=== PATIENT | female | born 1980 | race Two or more races ===

== ENCOUNTER 2016-11-09 15:32 | Inpatient (IN) | payer OTHER ==
[2016-11-09 18:48] VITALS: BMI 22.6
--- NOTE | 2016-11-09 19:40 | HP ---
CIWA Score - CIWA Score Nausea/Vomitin Muscle Tremors: 4-Moderate,w/Arms Extend Anxiety: 4-Mod. Anxious/Guarded Agitation: 4-Moderately Restless Paroxysmal Sweats: 1-Minimal Palms Moist Orientation: 1-Uncertain about Date Tacttile Disturbances: 0-None Auditory Disturbances: 0-None Visual Disturbances: 0-None Headache: 1-Very Mild CIWA-Ar Total Score: 17 Admission ROS BHS - HPI Chief Complaint: WITHDRAWAL SX Allergies/Adverse Reactions: Allergies Allergy/AdvReac Type Severity Reaction Status Date / Time No Known Allergies Allergy Verified 12/16/15 14:42 History of Present Illness: 36 YEARS OLD FEMALE WITH LONG HISTORY OF ALCOHOL NICOTINE DEPENDENCE HAS ASTHMA AND DEPRESSION IS ADMITTED TO DETOX Exam Limitations: No Limitations - Ebola screening Have you traveled outside of the country in the last 21 days: No Have you had contact with anyone from an Ebola affected area: No Have you been sick,other than usual withdrawal symptoms: No Do you have a fever: No - Review of Systems Constitutional: Chills, Changes in sleep, Weight Stable EENT: reports: No Symptoms Reported Respiratory: reports: SOB with Exertion, Productive cough Cardiac: reports: No Symptoms Reported GI: reports: Nausea, Poor Fluid Intake, Abdominal cramping : reports: No Symptoms Reported Musculoskeletal: reports: No Symptoms Reported Integumentary: reports: No Symptoms Reported Neuro: reports: Tremors Endocrine: reports: No Symptoms Reported Hematology: reports: No Symptoms Reported Psychiatric: reports: Judgement Intact, Depressed Other Systems: Reviewed and Negative Patient History - Patient Medical History Hx Anemia: No Hx Asthma: Yes (ON ALBUTEROL INHALER) Hx Chronic Obstructive Pulmonary Disease (COPD): No Hx Cancer: No Hx Cardiac Disorders: No Hx Congestive Heart Failure: No Hx Hypertension: No Hx Hypercholesterolemia: No Hx Pacemaker: No HX Cerebrovascular Accident: No Hx Seizures: No Hx Dementia: No Hx Diabetes: No Hx Gastrointestinal Disorders: No Hx Liver Disease: No Hx Genitourinary Disorders: No Hx Sexually Transmitted Disorders: No Hx Renal Disease (ESRD): No Hx Thyroid Disease: No Hx Human Immunodeficiency Virus (HIV): No (LAST 09/24) Hx Hepatitis C: No Hx Depression: Yes (NO MED) Hx Suicide Attempt: No Hx Bipolar Disorder: No Hx Schizophrenia: No - Patient Surgical History Past Surgical History: Yes Hx Neurologic Surgery: No Hx Cataract Extraction: No Hx Cardiac Surgery: No Hx Lung Surgery: No Hx Breast Surgery: No Hx Breast Biopsy: No Hx Abdominal Surgery: No Hx Appendectomy: No Hx Cholecystectomy: No Hx Genitourinary Surgery: No Hx Section: Yes (x1) Hx Orthopedic Surgery: No Hx Hysterectomy: No Other Surgical History: S/P SECTION Anesthesia Reaction: No - PPD History Previous Implant?: Yes Documented Results: Negative w/o proof Implanted On Prior [facility] Admission?: Yes Date: 12/19/15 PPD to be Administered?: No - Smoking Cessation Smoking history: Current every day smoker Have you smoked in the past 12 months: Yes Aproximately how many cigarettes per day: 6 Cigars Per Day: 0 Hx Chewing Tobacco Use: No Initiated information on smoking cessation: Yes 'Breaking Loose' booklet given: 11/09/16 - Substance & Tx. History Hx Alcohol Use: Yes Hx Substance Use: No Substance Use Type: Alcohol Hx Substance Use Treatment: Yes - Substances Abused Alcohol Route: Oral Frequency: Daily Amount used: 2 PINTS VOLKA Age of first use: 17 Date of Last Use: 11/09/16 Family Disease History - Family Disease History Family Disease History: Diabetes: Grandparent, Heart Disease: Mother Other Family History: ONLY CHILD Admission Physical Exam BHS - Vital Signs Vital Signs: Vital Signs - 24 hr 11/09/16 18:45 Temperature 99.2 F Pulse Rate 128 H Respiratory 20 Rate Blood Pressure 132/86 - Physical General Appearance: Yes: Appropriately Dressed, Mild Distress, Alcohol on Breath , Thin, Tremorous, Irritable, Sweating, Anxious HEENTM: Yes: Hearing grossly Normal, Normal ENT Inspection, Normocephalic, Normal Voice Respiratory: Yes: Chest Non-Tender, No Respiratory Distress, No Accessory Muscle Use, Rhonchi, Wheezing, Expiration Neck: Yes: Supple, Trachea in good position Breast: Yes: Breasts Symetrical Cardiology: Yes: Regular Rhythm, S1, S2, Tachycardia Abdominal: Yes: Non Tender, Soft Genitourinary: Yes: Within Normal Limits Back: Yes: Normal Inspection Musculoskeletal: Yes: full range of Motion, Gait Steady Extremities: Yes: Normal Inspection, Normal Range of Motion, Non-Tender, Tremors Neurological: Yes: Alert, Motor Strength 5/5, Normal Response, Depressed Affect Integumentary: Yes: Warm Lymphatic: Yes: Within Normal Limits - Diagnostic (1) Alcohol dependence with uncomplicated withdrawal Current Visit: Yes Status: Acute (2) Asthma Current Visit: Yes Status: Chronic Qualifiers: Asthma severity: moderate persistent Asthma complication type: with acute exacerbation Qualified Code(s): J45.41 - Moderate persistent asthma with (acute) exacerbation (3) Nicotine dependence Current Visit: Yes Status: Acute Qualifiers: Nicotine product type: cigarettes Substance use status: in withdrawal Qualified Code(s): F17.213 - Nicotine dependence, cigarettes, with withdrawal (4) Weight loss Current Visit: Yes Status: Acute (5) Depression Current Visit: No Status: Chronic Qualifiers: Depression Type: unspecified Qualified Code(s): F32.9 - Major depressive disorder, single episode, unspecified (6) GERD (gastroesophageal reflux disease) Current Visit: Yes Status: Chronic Qualifiers: Esophagitis presence: without esophagitis Qualified Code(s): K21.9 - Gastro-esophageal reflux disease without esophagitis Cleared for Admission BHS - Detox or Rehab BHS Level of Care: Medically Managed Detox Regimen/Protocol: Librium BHS Breath Alcohol Content Breath Alcohol Content: 0.245 Urine Drug Screen - Results Drug Screen Negative: Yes
[2016-11-09] MEDS ORDERED: chlordiazePOXIDE HCL 25 MG CAPSULE PO PRN (19:56)
[2016-11-09] MEDS ORDERED: guaiFENesin/D-METHORPHAN HB 10 ML UNIT-DOSE CUPS PO PRN (19:56)
[2016-11-09] MEDS ORDERED: ACETAMINOPHEN 325 MG TABLET (FP) PO PRN (19:56)
[2016-11-09] MEDS ORDERED: P-EPHED 60MG/TRIPROLIDI 2.5MG TABLET PO PRN (19:56)
[2016-11-09] MEDS ORDERED: MAGNESIUM CITRATE 300 ML BOTTLE PO PRN (19:56)
[2016-11-09] MEDS ORDERED: MAG HYDROX/AL HYDROX/SIMETH 30 ML UNIT-DOSE CUP PO PRN (19:56)
[2016-11-09] MEDS ORDERED: LOPERAMIDE HCL 2 MG CAPSULE PO PRN (19:56)
[2016-11-09] MEDS ORDERED: MENTHOL/PHENOL 1 EACH UD MM PRN (19:56)
[2016-11-09] MEDS ORDERED: MAGNESIUM HYDROX 2400MG/30ML ORAL SUSPENSION 30 ML CUP PO PRN (19:56)
[2016-11-09] MEDS ORDERED: hydrOXYzine PAMOATE 50 MG CAPSULE (FP) PO PRN (19:56)
[2016-11-09] MEDS ORDERED: chlordiazePOXIDE HCL 25 MG CAPSULE PO ONE (19:56)
[2016-11-09] MEDS ORDERED: ALBUTEROL SO4 6.7 GM HFA INHALER IH PRN (20:02)
[2016-11-09] MEDS: RANITIDINE HCL 150 MG TABLET (FP) PO SCH (21:30)
[2016-11-09 22:42] LABS: URINE APPEARANCE CLEAR; URINE BILIRUBIN NEGATIVE (NEGATIVE); URINE BLOOD NEGATIVE (NEGATIVE); URINE COLOR DKYELLOW; URINE GLUCOSE (UA) NEGATIVE (NEGATIVE); URINE KETONE TRACE (NEGATIVE); URINE NITRITE NEGATIVE (NEGATIVE); URINE UROBILINOGEN 2.0 E.U/dl E.U./dl (0.2-1.0)
[2016-11-09 22:44] LABS: URINE PROTEIN 2+ (NEGATIVE)
[2016-11-09 22:45] LABS: URINE LEUK ESTERASE TRACE (NEGATIVE)
[2016-11-09] MEDS: chlordiazePOXIDE HCL 25 MG CAPSULE PO SCH (22:48)
[2016-11-09] MEDS: BUDESONIDE/FORMETEROL FUMARATE 80/4.5 mcg INHALER IH SCH (22:48)
[2016-11-09] MEDS: THIAMINE HCL 100 MG TABLET (FP) PO SCH (22:49)
[2016-11-09 22:58] LABS: URINE HYALINE CAST 6 /lpf; URINE MUCUS MANY; URINE RBC 3 /hpf (0-3); URINE WBC 11 /hpf (3-5)
[2016-11-10] MEDS: diphenhydrAMINE HCL 50 MG CAPSULE PO PRN (01:50)
[2016-11-10] MEDS: chlordiazePOXIDE HCL 25 MG CAPSULE PO SCH ×4 (05:32→22:13)
--- NOTE | 2016-11-10 09:52 | EKG ---
Test Reason : Blood Pressure : / mmHG Vent. Rate : 094 BPM Atrial Rate : 094 BPM P-R Int : 154 ms QRS Dur : 086 ms QT Int : 378 ms P-R-T Axes : 055 005 049 degrees QTc Int : 472 ms NORMAL SINUS RHYTHM NONSPECIFIC ST ABNORMALITY NO PREVIOUS ECGS AVAILABLE POOR DATA QUALITY, INTERPRETATION MAY BE ADVERSELY AFFECTED Confirmed by JASPAL SEGURA MD ([id number]) on 11/10/2016 9:52:24 AM Referred By: Confirmed By:JASPAL SEGURA MD
[2016-11-10 10:18] LABS: MCHC 33.8 g/dl (32.0-36.0); MEAN CELL VOLUME 100.5 fl (80-96); PLATELET COUNT 99 K/MM3 (134-434); RDW 13.6 % (11.6-15.6); WHITE BLOOD COUNT 4.6 K/mm3 (4.0-10.0)
[2016-11-10] MEDS: RANITIDINE HCL 150 MG TABLET (FP) PO SCH ×2 (10:34→22:13)
[2016-11-10] MEDS: PRENATAL VITAMINS W/ FOLIC ACID TABLET (FP) PO SCH (10:34)
[2016-11-10] MEDS: predniSONE 20 MG TABLET (UD) PO SCH (10:35)
[2016-11-10] MEDS: NICOTINE 14 MG/24 HOURS TOPICAL PATCH TD SCH (10:35)
[2016-11-10] MEDS: BUDESONIDE/FORMETEROL FUMARATE 80/4.5 mcg INHALER IH SCH ×2 (10:35→23:27)
[2016-11-10 10:59] LABS: ALBUMIN 3.5 g/dl (3.4-5.0); ALK PHOS 175 U/L (45-117); ANION GAP 13 (8-16); BILIRUBIN,TOTAL 0.9 mg/dL (0.2-1.0); CALCIUM 8.5 mg/dL (8.5-10.1); CO2 28 mmol/L (21-32); CREATININE 0.6 mg/dL (0.55-1.02); GLUCOSE,RANDOM 85 mg/dL (74-106); SGOT/AST 171 U/L (15-37); SGPT/ALT 32 U/L (12-78); TOT PROT 7.8 g/dl (6.4-8.2)
--- NOTE | 2016-11-10 11:08 | PN ---
S CIWA - CIWA Score Nausea/Vomitin-No Nausea/No Vomiting Muscle Tremors: 4-Moderate,w/Arms Extend Anxiety: 3 Agitation: 4-Moderately Restless Paroxysmal Sweats: 3 Orientation: 0-Oriented Tacttile Disturbances: 0-None Auditory Disturbances: 0-None Visual Disturbances: 0-None Headache: 0-None Present CIWA-Ar Total Score: 14 BHS Progress Note (SOAP) Subjective: shakes sweats nausea headache interrupted sleep Objective: 11/10/16 11:05 Vital Signs Temperature 98.6 F 11/10/16 10:15 Pulse Rate 91 H 11/10/16 10:15 Respiratory Rate 16 11/10/16 10:15 Blood Pressure 131/107 11/10/16 10:15 O2 Sat by Pulse Oximetry (%) Laboratory Tests 11/09/16 11/10/16 11/10/16 21:32 06:00 07:50 WBC 4.6 D RBC 3.64 D Hgb 12.4 D Hct 36.6 MCV 100.5 H MCHC 33.8 RDW 13.6 D Plt Count 99 L D MPV 9.0 Sodium 141 Potassium 3.3 L Chloride 100 Urine Color Dkyellow Urine Appearance Clear Urine pH 6.0 D Ur Specific [place] >= 1.030 H Urine Protein 2+ H Urine Glucose (UA) Negative Urine Ketones Trace H Urine Blood Negative Urine Nitrite Negative Urine Bilirubin Negative Urine Urobilinogen 2.0 e.u/dl H Ur Leukocyte Esterase Trace H D Urine RBC 3 Urine WBC 11 Ur Epithelial Cells Rare Hyaline Casts 6 Urine Mucus Many low potassium 3.3; will order k-dur awake/alert ambulating no acute distress repeat u/a Assessment: 11/10/16 11:06 withdrawal sx Plan: continue detox increase fluids k-dur [id number] x 4 days repeat u/a
[2016-11-10] MEDS: POTASSIUM CHLORIDE TABS 20 MEQ TABLET.ER (FP) PO SCH (12:11)
[2016-11-10] MEDS: NICOTINE POLACRILEX 2 MG GUM BC PRN ×2 (13:04→18:33)
[2016-11-10 15:00] LABS: HIV 1 & 2 AB NEGATIVE; HIV 1 AGp24 NEGATIVE
--- NOTE | 2016-11-10 17:43 | CONSULT ---
[facility] Psychiatric Consult - Data Date of interview: 11/10/16 Admission source: [facility] Identifying data: Readmission to [facility] for this 36 y/o AA female seeking detox treatment for alcohol dependence.Patient is single,a mother of five, domiciled,unemployed and supported on Public Assistance. Substance Abuse History: - Smoking Cessation. Smoking history: Current every day smoker. Have you smoked in the past 12 months: Yes. Aproximately how many cigarettes per day: 6. Cigars Per Day: 0. Hx Chewing Tobacco Use: No. Initiated information on smoking cessation: Yes. 'Breaking Loose' booklet given : 11/09/16. - Substance & Tx. History. Hx Alcohol Use: Yes. Hx Substance Use : No. Substance Use Type: Alcohol. Hx Substance Use Treatment: Yes. - Substances Abused. Alcohol. Route: Oral. Frequency: Daily. Amount used: 2 PINTS VOLKA. Age of first use: 17. Date of Last Use: 11/09/16. Confirmed by patient. Medical History: Bronchial asthma and a history of one section. Psychiatric History: Patient denies. Physical/Sexual Abuse/Trauma History: Patient denies. Additional Comment: Drug Screen is negative. Mental Status Exam - Mental Status Exam Alert and Oriented to: Time, Place, Person Cognitive Function: Good Patient Appearance: Well Groomed Mood: Hopeful, Euthymic Affect: Appropriate, Normal Range Patient Behavior: Fatigued, Appropriate, Cooperative Speech Pattern: Clear Voice Loudness: Normal Thought Process: Goal Oriented Thought Disorder: Not Present Hallucinations: Denies Suicidal Ideation: Denies Homicidal Ideation: Denies Insight/Judgement: Fair Sleep: Poorly, Difficulty falling asleep Appetite: Good Muscle strength/Tone: Normal Gait/Station: Normal Psychiatric Findings - Problem List ([place] 1, 2,3) (1) Alcohol dependence with uncomplicated withdrawal Current Visit: Yes Status: Acute (2) Nicotine dependence Current Visit: Yes Status: Acute Qualifiers: Nicotine product type: cigarettes Substance use status: in withdrawal Qualified Code(s): F17.213 - Nicotine dependence, cigarettes, with withdrawal (3) Drug-induced mood disorder Current Visit: Yes Status: Acute (4) Weight loss Current Visit: Yes Status: Acute (5) Asthma Current Visit: Yes Status: Chronic Qualifiers: Asthma severity: moderate persistent Asthma complication type: with acute exacerbation Qualified Code(s): J45.41 - Moderate persistent asthma with (acute) exacerbation (6) GERD (gastroesophageal reflux disease) Current Visit: Yes Status: Chronic Qualifiers: Esophagitis presence: without esophagitis Qualified Code(s): K21.9 - Gastro-esophageal reflux disease without esophagitis (7) Insomnia Current Visit: Yes Status: Acute - Initial Treatment Plan Initial Treatment Plan: Psychoeducation.Detoxification in progress.Ambien 5 mg po hs.Patient is made aware of the potential for parasomnias.She agrees with this plan of care (no script for ambien will be issued at discharge) .Observation.
[2016-11-10] MEDS: THIAMINE HCL 100 MG TABLET (FP) PO SCH (22:13)
[2016-11-10] MEDS: ZOLPIDEM TARTRATE 5 MG TABLET PO PRN (22:13)
[2016-11-11] MEDS: chlordiazePOXIDE HCL 25 MG CAPSULE PO SCH ×3 (05:29→17:25)
[2016-11-11] MEDS: POTASSIUM CHLORIDE TABS 20 MEQ TABLET.ER (FP) PO SCH (10:45)
[2016-11-11] MEDS: BUDESONIDE/FORMETEROL FUMARATE 80/4.5 mcg INHALER IH SCH ×2 (10:45→22:17)
[2016-11-11] MEDS: PRENATAL VITAMINS W/ FOLIC ACID TABLET (FP) PO SCH (10:45)
[2016-11-11] MEDS: predniSONE 20 MG TABLET (UD) PO SCH (10:45)
[2016-11-11] MEDS: NICOTINE 14 MG/24 HOURS TOPICAL PATCH TD SCH (10:46)
[2016-11-11] MEDS: RANITIDINE HCL 150 MG TABLET (FP) PO SCH ×2 (10:46→22:17)
[2016-11-11 15:31] LABS: URINE APPEARANCE CLEAR; URINE BILIRUBIN NEGATIVE (NEGATIVE); URINE BLOOD NEGATIVE (NEGATIVE); URINE COLOR AMBER; URINE GLUCOSE (UA) NEGATIVE (NEGATIVE); URINE KETONE NEGATIVE (NEGATIVE); URINE LEUK ESTERASE NEGATIVE (NEGATIVE); URINE NITRITE NEGATIVE (NEGATIVE); URINE UROBILINOGEN 4.0 E.U/dl E.U./dl (0.2-1.0)
[2016-11-11 15:33] LABS: URINE PROTEIN 1+ (NEGATIVE)
[2016-11-11 15:34] LABS: URINE MUCUS RARE; URINE RBC 2 /hpf (0-3); URINE WBC 7 /hpf (3-5)
--- NOTE | 2016-11-11 15:59 | PN ---
[facility] CIWA - CIWA Score Nausea/Vomitin-No Nausea/No Vomiting Muscle Tremors: 4-Moderate,w/Arms Extend Anxiety: 3 Agitation: 3 Paroxysmal Sweats: 3 Orientation: 0-Oriented Tacttile Disturbances: 0-None Auditory Disturbances: 0-None Visual Disturbances: 0-None Headache: 0-None Present CIWA-Ar Total Score: 13 S Progress Note (SOAP) Subjective: Anxiety,tremors,sweating,interrupted sleep,restless. Objective: 11/11/16 15:58 Vital Signs - 8 hr 11/11/16 11/11/16 10:00 14:22 Temperature 98.2 F 98.2 F Pulse Rate 105 H 84 Respiratory 20 18 Rate Blood Pressure 129/101 131/96 Laboratory Last Values WBC 4.6 K/mm3 (4.0-10.0) D 11/10/16 07:50 RBC 3.64 M/mm3 (3.60-5.2) D 11/10/16 07:50 Hgb 12.4 GM/dL (10.7-15.3) D 11/10/16 07:50 Hct 36.6 % (32.4-45.2) 11/10/16 07:50 MCV 100.5 fl (80-96) H 11/10/16 07:50 MCHC 33.8 g/dl (32.0-36.0) 11/10/16 07:50 RDW 13.6 % (11.6-15.6) D 11/10/16 07:50 Plt Count 99 K/MM3 (134-434) L D 11/10/16 07:50 MPV 9.0 fl (7.5-11.1) 11/10/16 07:50 Sodium 141 mmol/L (136-145) 11/10/16 06:00 Potassium 3.3 mmol/L (3.5-5.1) L 11/10/16 06:00 Chloride 100 mmol/L (98-107) 11/10/16 06:00 Carbon Dioxide 28 mmol/L (21-32) 11/10/16 06:00 Anion Gap 13 (8-16) 11/10/16 06:00 BUN 5 mg/dL (7-18) L 11/10/16 06:00 Creatinine 0.6 mg/dL (0.55-1.02) D 11/10/16 06:00 Creat Clearance w eGFR > 60 (>60) 11/10/16 06:00 Random Glucose 85 mg/dL (74-106) 11/10/16 06:00 Calcium 8.5 mg/dL (8.5-10.1) 11/10/16 06:00 Total Bilirubin 0.9 mg/dL (0.2-1.0) D 11/10/16 06:00 AST 171 U/L (15-37) H 11/10/16 06:00 ALT 32 U/L (12-78) 11/10/16 06:00 Alkaline Phosphatase 175 U/L (45-117) H D 11/10/16 06:00 Total Protein 7.8 g/dl (6.4-8.2) 11/10/16 06:00 Albumin 3.5 g/dl (3.4-5.0) D 11/10/16 06:00 Urine Color Farhana 11/11/16 09:13 Urine Appearance Clear 11/11/16 09:13 Urine pH 7.0 (5.0-8.0) 11/11/16 09:13 Ur Specific [place] >= 1.030 (1.005-1.025) H 11/09/16 21:32 Urine Protein 1+ (NEGATIVE) H 11/11/16 09:13 Urine Glucose (UA) Negative (NEGATIVE) 11/11/16 09:13 Urine Ketones Negative (NEGATIVE) 11/11/16 09:13 Urine Blood Negative (NEGATIVE) 11/11/16 09:13 Urine Nitrite Negative (NEGATIVE) 11/11/16 09:13 Urine Bilirubin Negative (NEGATIVE) 11/11/16 09:13 Urine Urobilinogen 4.0 e.u/dl E.U./dl (0.2-1.0) H 11/11/16 09:13 Ur Leukocyte Esterase Negative (NEGATIVE) 11/11/16 09:13 Urine RBC 2 /hpf (0-3) 11/11/16 09:13 Urine WBC 7 /hpf (3-5) 11/11/16 09:13 Ur Epithelial Cells Rare /hpf (FEW) 11/11/16 09:13 Hyaline Casts 6 /lpf 11/09/16 21:32 Urine Mucus Rare 11/11/16 09:13 RPR Titer Nonreactive (NONREACTIVE) 11/10/16 06:00 HIV 1&2 Antibody Screen Negative 11/10/16 06:00 HIV P24 Antigen Negative 11/10/16 06:00 labs noted,k-juliana in progress. Assessment: 11/11/16 15:58 Withdrawal sx. Plan: Continue detox
[2016-11-11] MEDS: MONTELUKAST NA 10 MG TABLET PO SCH (22:17)
[2016-11-11] MEDS: chlordiazePOXIDE 5 MG CAPSULE PO SCH (22:17)
[2016-11-11] MEDS: THIAMINE HCL 100 MG TABLET (FP) PO SCH (22:17)
[2016-11-11] MEDS: diphenhydrAMINE HCL 50 MG CAPSULE PO PRN (22:19)
[2016-11-12] MEDS: chlordiazePOXIDE 5 MG CAPSULE PO SCH ×3 (05:38→17:14)
[2016-11-12] MEDS: PRENATAL VITAMINS W/ FOLIC ACID TABLET (FP) PO SCH (10:46)
[2016-11-12] MEDS: POTASSIUM CHLORIDE TABS 20 MEQ TABLET.ER (FP) PO SCH (10:46)
[2016-11-12] MEDS: BUDESONIDE/FORMETEROL FUMARATE 80/4.5 mcg INHALER IH SCH ×2 (10:47→22:18)
[2016-11-12] MEDS: predniSONE 20 MG TABLET (UD) PO SCH (10:47)
[2016-11-12] MEDS: RANITIDINE HCL 150 MG TABLET (FP) PO SCH ×2 (10:47→22:18)
[2016-11-12] MEDS: NICOTINE 14 MG/24 HOURS TOPICAL PATCH TD SCH (10:51)
[2016-11-12 10:56] LABS: BASOPHIL 0.8 % (0-2.0); EOSINOPHIL 1.1 % (0-4.5); MCH 33.9 pg (25.7-33.7); MCHC 33.3 g/dl (32.0-36.0); PLATELET COUNT 100 K/MM3 (134-434); RDW 13.5 % (11.6-15.6); WHITE BLOOD COUNT 5.1 K/mm3 (4.0-10.0)
[2016-11-12 11:11] LABS: ALBUMIN 3.4 g/dl (3.4-5.0); ALK PHOS 197 U/L (45-117); ANION GAP 10 (8-16); BILIRUBIN,TOTAL 0.9 mg/dL (0.2-1.0); CALCIUM 8.9 mg/dL (8.5-10.1); CO2 26 mmol/L (21-32); COCKROFT - GAULT 150.0165; CREATININE 0.5 mg/dL (0.55-1.02); GLUCOSE,RANDOM 97 mg/dL (74-106); SGOT/AST 175 U/L (15-37); SGPT/ALT 53 U/L (12-78); TOT PROT 7.7 g/dl (6.4-8.2)
--- NOTE | 2016-11-12 12:27 | PN ---
BHS Progress Note (SOAP) Subjective: Sweating,interrupted sleep,restless Objective: 11/12/16 12:12 Vital Signs - 8 hr 11/12/16 11/12/16 06:00 09:57 Temperature 97.7 F 97.9 F Pulse Rate 62 76 Respiratory 18 18 Rate Blood Pressure 143/98 118/89 Laboratory Tests 11/09/16 11/10/16 11/10/16 21:32 06:00 06:00 WBC RBC Hgb Hct MCV MCHC RDW Plt Count MPV Neutrophils % Lymphocytes % Monocytes % Eosinophils % Basophils % Sodium 141 Potassium 3.3 L Chloride 100 Carbon Dioxide 28 Anion Gap 13 BUN 5 L Creatinine 0.6 D Creat Clearance w eGFR > 60 Random Glucose 85 Calcium 8.5 Total Bilirubin 0.9 D AST 171 H ALT 32 Alkaline Phosphatase 175 H D Total Protein 7.8 Albumin 3.5 D Urine Color Dkyellow Urine Appearance Clear Urine pH 6.0 D Ur Specific [place] >= 1.030 H Urine Protein 2+ H Urine Glucose (UA) Negative Urine Ketones Trace H Urine Blood Negative Urine Nitrite Negative Urine Bilirubin Negative Urine Urobilinogen 2.0 e.u/dl H Ur Leukocyte Esterase Trace H D Urine RBC 3 Urine WBC 11 Ur Epithelial Cells Rare Hyaline Casts 6 Urine Mucus Many RPR Titer Nonreactive HIV 1&2 Antibody Screen HIV P24 Antigen 11/10/16 11/10/16 11/11/16 06:00 07:50 09:13 WBC 4.6 D RBC 3.64 D Hgb 12.4 D Hct 36.6 MCV 100.5 H MCHC 33.8 RDW 13.6 D Plt Count 99 L D MPV 9.0 Neutrophils % Lymphocytes % Monocytes % Eosinophils % Basophils % Sodium Potassium Chloride Carbon Dioxide Anion Gap BUN Creatinine Creat Clearance w eGFR Random Glucose Calcium Total Bilirubin AST ALT Alkaline Phosphatase Total Protein Albumin Urine Color Farhana Urine Appearance Clear Urine pH 7.0 Ur Specific [place] 1.015 Urine Protein 1+ H Urine Glucose (UA) Negative Urine Ketones Negative Urine Blood Negative Urine Nitrite Negative Urine Bilirubin Negative Urine Urobilinogen 4.0 e.u/dl H Ur Leukocyte Esterase Negative Urine RBC 2 Urine WBC 7 Ur Epithelial Cells Rare Hyaline Casts Urine Mucus Rare RPR Titer HIV 1&2 Antibody Screen Negative HIV P24 Antigen Negative 11/12/16 11/12/16 07:45 07:45 WBC 5.1 RBC 3.65 Hgb 12.4 Hct 37.2 MCV 102.0 H MCHC 33.3 RDW 13.5 Plt Count 100 L MPV 10.0 D Neutrophils % 46.0 Lymphocytes % 42.9 H Monocytes % 9.2 Eosinophils % 1.1 Basophils % 0.8 Sodium 140 Potassium 3.7 Chloride 104 Carbon Dioxide 26 Anion Gap 10 BUN 5 L Creatinine 0.5 L Creat Clearance w eGFR > 60 Random Glucose 97 Calcium 8.9 Total Bilirubin 0.9 AST 175 H ALT 53 D Alkaline Phosphatase 197 H Total Protein 7.7 Albumin 3.4 Urine Color Urine Appearance Urine pH Ur Specific [place] Urine Protein Urine Glucose (UA) Urine Ketones Urine Blood Urine Nitrite Urine Bilirubin Urine Urobilinogen Ur Leukocyte Esterase Urine RBC Urine WBC Ur Epithelial Cells Hyaline Casts Urine Mucus RPR Titer HIV 1&2 Antibody Screen HIV P24 Antigen labs noted Assessment: 11/12/16 12:27 Withdrawal sx. Plan: Continue detox
[2016-11-12] MEDS: ZOLPIDEM TARTRATE 5 MG TABLET PO PRN (22:17)
[2016-11-12] MEDS: chlordiazePOXIDE HCL 10 MG CAPSULE PO SCH (22:18)
[2016-11-12] MEDS: THIAMINE HCL 100 MG TABLET (FP) PO SCH (22:18)
[2016-11-12] MEDS: MONTELUKAST NA 10 MG TABLET PO SCH (22:18)
[2016-11-13] MEDS: chlordiazePOXIDE HCL 10 MG CAPSULE PO SCH ×2 (05:14→10:22)
--- NOTE | 2016-11-13 08:24 | DS ---
[facility] Detox Discharge Summary Admission Date: 11/09/16 Discharge Date: 11/13/16 - History Present History: Alcohol Dependence - Physical Exam Results Vital Signs: Vital Signs Temperature 97.7 F 11/13/16 06:43 Pulse Rate 65 11/13/16 06:43 Respiratory Rate 16 11/13/16 06:43 Blood Pressure 120/79 11/13/16 06:43 O2 Sat by Pulse Oximetry (%) - Treatment Hospital Course: Detox Protocol Followed, Detoxed Safely, Responded well, Discharged Condition Good, Rehab Referral Accepted - Medication Discharge Medications: Ambulatory Orders Albuterol Sulfate [Proair Respiclick] 90 mcg IH QID 11/09/16 Prednisone [Deltasone] 50 mg PO DAILY 11/09/16 - Diagnosis (1) Alcohol dependence with uncomplicated withdrawal Current Visit: Yes Status: Chronic (2) Drug-induced mood disorder Current Visit: Yes Status: Acute (3) Insomnia Current Visit: Yes Status: Acute (4) Nicotine dependence Current Visit: Yes Status: Chronic Qualifiers: Nicotine product type: cigarettes Substance use status: in withdrawal Qualified Code(s): F17.213 - Nicotine dependence, cigarettes, with withdrawal (5) Weight loss Current Visit: Yes Status: Acute (6) Asthma Current Visit: Yes Status: Chronic Qualifiers: Asthma severity: moderate persistent Asthma complication type: with acute exacerbation Qualified Code(s): J45.41 - Moderate persistent asthma with (acute) exacerbation (7) GERD (gastroesophageal reflux disease) Current Visit: Yes Status: Chronic Qualifiers: Esophagitis presence: without esophagitis Qualified Code(s): K21.9 - Gastro-esophageal reflux disease without esophagitis (8) Depression Current Visit: No Status: Chronic Qualifiers: Depression Type: unspecified Qualified Code(s): F32.9 - Major depressive disorder, single episode, unspecified - AMA Did Patient Leave Against Medical Advice: No
[2016-11-13] MEDS: predniSONE 20 MG TABLET (UD) PO SCH (10:21)
[2016-11-13] MEDS: PRENATAL VITAMINS W/ FOLIC ACID TABLET (FP) PO SCH (10:22)
[2016-11-13] MEDS: NICOTINE 14 MG/24 HOURS TOPICAL PATCH TD SCH (10:22)
[2016-11-13] MEDS: POTASSIUM CHLORIDE TABS 20 MEQ TABLET.ER (FP) PO SCH (10:22)
[2016-11-13] MEDS: BUDESONIDE/FORMETEROL FUMARATE 80/4.5 mcg INHALER IH SCH (10:23)
[2016-11-13] MEDS: RANITIDINE HCL 150 MG TABLET (FP) PO SCH (10:23)
[2016-11-13 10:31] VITALS: BP 137/99; PULSE 68; TEMP 96.8
[2016-11-14] MEDS ORDERED: predniSONE 20 MG TABLET (UD) PO SCH (10:00)
== END 2016-11-13 11:45 | disposition other institution (70) | DRG 775 ==
LOC: YASAS 15:32 → Y6N 20:29
PROVIDERS: ADMIT Internal Medicine; ATTEND Internal Medicine
PROC: HZ2ZZZZ Detoxification Services for Substance Abuse Treatment (ICD-10-PCS; principal; 2016-11-13)
DX: F10.230 Alcohol dependence with withdrawal, uncomplicated (principal); F19.24 Other psychoactive substance dependence with psychoactive substance-induced mood disorder; F32.9 Major depressive disorder, single episode, unspecified; G47.00 Insomnia, unspecified; J45.41 Moderate persistent asthma with (acute) exacerbation; K21.9 Gastro-esophageal reflux disease without esophagitis; R63.4 Abnormal weight loss; Z68.22 Body mass index [BMI] 22.0-22.9, adult
CPT/HCPCS: 36415; 80053; 81003; 81015; 85025; 85027; 86593; 87389; 93005; 93010